=== PATIENT | male | born 1985 | race Caucasian/White ===

== ENCOUNTER 2019-04-28 11:26 | Emergency (ER) | payer SELFPAY ==
[2019-04-28 14:18] LABS: Absolute Lymphocytes (CBC) 1.6 K/uL (0.7-4.9); Basophils % 0.2 % (0-1.3); Hematocrit 47.5 % (39.6-49.0); Lymphocytes % 10.9 % (15.3-44.8); MPV 9.3 fL (7.6-11.3); RBC Red Blood Cell Count 5.48 M/uL (4.33-5.43)
[2019-04-28 14:30] LABS: Albumin 5.2 g/dL (3.4-5.0); Bilirubin Direct 0.2 mg/dL (0-0.2); Bilirubin Total 0.9 mg/dL (0.2-1.0); Potassium 3.4 mmol/L (3.5-5.1); Protein, Total 9.5 g/dL (6.4-8.2)
[2019-04-28] MEDS ORDERED: ONDANSETRON 4 MG/2 ML VIAL ONE (14:37)
[2019-04-28] MEDS ORDERED: NA CHLORIDE 0.9% 1,000 ML ONE (14:37)
[2019-04-28] MEDS ORDERED: FAMOTIDINE 20 MG/2 ML VIAL IV ONE (14:37)
--- NOTE | 2019-04-28 15:33 | RAD REPORT ---
EXAM DESCRIPTION: CT - Abdomen Pelvis W Contrast - 04/28/2019 3:06 pm CLINICAL HISTORY: NAUSEA / VOMITING COMPARISON: No comparisons TECHNIQUE: Biphasic, helical CT imaging of the abdomen and pelvis was performed following 100 ml non -ionic IV contrast. No oral contrast. All CT scans are performed using dose optimization technique as appropriate and may include automated exposure control or mA/KV adjustment according to patient size. FINDINGS: No suspicious findings in the lung bases. The liver, spleen, and pancreas show no suspicious findings. Liver attenuation is borderline to mildl y fatty infiltrated. No gallbladder or biliary tree abnormality. Symmetric renal function is seen with no hydronephrosis or suspicious renal mass. No pyelonephritis o r acute parenchymal process. No bladder abnormalities. No adrenal abnormalities. No prostate gland or seminal vesicle abnormality. No dilated bowel loops or bowel wall thickening. Appendix is normal. No free air, free fluid or infla mmatory stranding. No mass or bulky lymphadenopathy. Fat extends 1-2 cm into the right inguinal isra l. No suspicious bony findings. IMPRESSION: No appendicitis or other acute GI process identifiable. No acute finding. Borderline to mild fatty infiltration of the liver.
--- NOTE | 2019-04-28 15:39 | EDPHYS ---
Physician Documentation [facility] Name: Nile Saba Age: 33 yrs Sex: Male : 1985 Arrival Date: 04/28/2019 Time: 11:29 Bed 27 Private MD: ED Physician Mario Luna HPI: 04/28 14:55 This 33 yrs old Male presents to ER via Ambulatory with complaints of jr8 Vomiting. 14:55 The patient presents to the emergency department with nausea, vomiting. Onset: The jr8 symptoms/episode began/occurred acutely, yesterday. Possible causes: unknown. The symptoms are aggravated by food , The symptoms are alleviated by nothing. Associated signs and symptoms: The patient has no apparent associated signs or symptoms. Severity of symptoms: At their worst the symptoms were mild in the emergency department the symptoms are unchanged. The patient has experienced a previous episode. The patient has not recently seen a physician. Patient stated that he had bad hangover with n/v not too long ago. Stated that yesterday evening through today started to have nausea again without abdominal pain or diarrhea. Denies drinking . Historical: - Allergies: 12:20 No Known Allergies; ca1 - Home Meds: 12:20 None [Active]; ca1 - PMHx: 12:20 None; ca1 - PSHx: 12:20 None; ca1 - Immunization history:: Adult Immunizations up to date, Flu vaccine is not up to date. - Coronavirus screen:: The patient has NOT traveled to [place], [place], or [place] in the past 14 days. The patient has NOT had contact with known/suspected case of Coronavirus?. - Social history:: Smoking status: Patient denies any tobacco usage or history of. - Ebola Screening: : Patient negative for fever greater than or equal to 101.5 degrees Fahrenheit, and additional compatible Ebola Virus Disease symptoms Patient denies exposure to infectious person Patient denies travel to an Ebola-affected area in the 21 days before illness onset No symptoms or risks identified at this time. ROS: 14:55 Eyes: Negative for injury, pain, redness, and discharge, ENT: Negative for injury, jr8 pain, and discharge, Neck: Negative for injury, pain, and swelling, Cardiovascular: Negative for chest pain, palpitations, and edema, Respiratory: Negative for shortness of breath, cough, wheezing, and pleuritic chest pain, Back: Negative for injury and pain, MS/Extremity: Negative for injury and deformity, Skin: Negative for injury, rash, and discoloration, Neuro: Negative for headache, weakness, numbness, tingling, and seizure. 14:55 Abdomen/GI: Positive for nausea and vomiting, Negative for abdominal pain, diarrhea, constipation, abdominal cramps, abdominal distension, anorexia, dysphagia, hematemesis, black/tarry stool, rectal pain, rectal bleeding, bowel incontinence, flatulence. Exam: 14:55 Eyes: Pupils equal round and reactive to light, extra-ocular motions intact. Lids and jr8 lashes normal. Conjunctiva and sclera are non-icteric and not injected. Cornea within normal limits. Periorbital areas with no swelling, redness, or edema. ENT: Nares patent. No nasal discharge, no septal abnormalities noted. Tympanic membranes are normal and external auditory canals are clear. Oropharynx with no redness, swelling, or masses, exudates, or evidence of obstruction, uvula midline. Mucous membranes moist. Neck: Trachea midline, no thyromegaly or masses palpated, and no cervical lymphadenopathy. Supple, full range of motion without nuchal rigidity, or vertebral point tenderness. No Meningismus. Cardiovascular: Regular rate and rhythm with a normal S1 and S2. No gallops, murmurs, or rubs. Normal PMI, no JVD. No pulse deficits. Respiratory: Lungs have equal breath sounds bilaterally, clear to auscultation and percussion. No rales, rhonchi or wheezes noted. No increased work of breathing, no retractions or nasal flaring. Abdomen/GI: Soft, non-tender, with normal bowel sounds. No distension or tympany. No guarding or rebound. No evidence of tenderness throughout. Back: No spinal tenderness. No costovertebral tenderness. Full range of motion. Skin: Warm, dry with normal turgor. Normal color with no rashes, no lesions, and no evidence of cellulitis. MS/ Extremity: Pulses equal, no cyanosis. Neurovascular intact. Full, normal range of motion. Neuro: Awake and alert, GCS 15, oriented to person, place, time, and situation. Cranial nerves II-XII grossly intact. Motor strength 5/5 in all extremities. Sensory grossly intact. Cerebellar exam normal. Normal gait. Vital Signs: 12:20 BP 140 / 90; Pulse 105; Resp 16 S; Temp 98.9; Pulse Ox 97% on R/A; Weight 97.52 kg (R); ca1 Height 6 ft. 2 in. (187.96 cm) (R); Pain 0/10; 14:00 BP 132 / 78; Pulse 88; Resp 14; Temp 98.4; Pulse Ox 100% ; Pain 0/10; ls4 16:00 BP 133 / 76; Pulse 84; Resp 14; Pulse Ox 100% on R/A; Pain 0/10; ls4 12:20 Body Mass Index 27.60 (97.52 kg, 187.96 cm) ca1 MDM: 13:59 Patient medically screened. jr8 15:38 Data reviewed: vital signs, nurses notes, lab test result(s), radiologic studies, CT jr8 scan. Data interpreted: Pulse oximetry: on room air is 97 %. Interpretation: normal. Counseling: I had a detailed discussion with the patient and/or guardian regarding: the historical points, exam findings, and any diagnostic results supporting the discharge/admit diagnosis, lab results, radiology results, the need for outpatient follow up, a brand inspector, to return to the emergency department if symptoms worsen or persist or if there are any questions or concerns that arise at home. Response to treatment: the patient's symptoms have markedly improved after treatment. 04/28 13:46 Order name: Basic Metabolic Panel; Complete Time: 14:54 4 04/28 13:46 Order name: CBC with Diff; Complete Time: 14:54 [facility] 04/28 13:46 Order name: Creatinine for Radiology; Complete Time: 14:54 4 04/28 13:46 Order name: Hepatic Function; Complete Time: 14:54 4 04/28 13:46 Order name: Lipase; Complete Time: 14:54 4 04/28 14:57 Order name: CT Abd/Pelvis - IV Contrast Only; Complete Time: 15:38 8 04/28 13:46 Order name: IV Saline Lock; Complete Time: 17:35 4 04/28 13:46 Order name: Labs collected and sent; Complete Time: 17:35 ls4 Administered Medications: 14:40 Drug: Zofran 4 mg Route: IVP; Site: left antecubital; ls4 15:00 Follow up: Response: No adverse reaction; Marked relief of symptoms ls4 14:40 Drug: Pepcid 20 mg Route: IVP; Site: left antecubital; ls4 17:34 Follow up: Response: No adverse reaction; Marked relief of symptoms ls4 14:41 Drug: NS 0.9% 1000 ml Route: IV; Rate: 1000 ml; Site: left antecubital; ls4 16:40 Follow up: IV Intake: 1000ml ls4 15:57 Drug: Promethazine 12.5 mg Route: IVP; Site: left antecubital; ls4 16:20 Follow up: Response: No adverse reaction; Marked relief of symptoms ls4 15:58 Drug: GI Cocktail without - (Maalox Suspension 30 ml, Lidocaine Liquid 2 % 15 ls4 ml) Route: PO; 16:15 Follow up: Response: No adverse reaction; Marked relief of symptoms ls4 Disposition: 18:38 Co-signature as Attending Physician, Mario Luna MD I agree with the assessment and kdr plan of care. Disposition: 04/28/19 15:38 Discharged to Home. Impression: Gastritis, unspecified. - Condition is Stable. - Discharge Instructions: Gastritis, Adult. - Prescriptions for omeprazole 40 mg Oral capsule,delayed release(DR/EC) - take 1 capsule by ORAL route once daily before a meal; 30 capsule. Zofran 4 mg Oral Tablet - take 1 tablet by ORAL route every 12 hours As needed; 20 tablet. - Medication Reconciliation Form, Thank You Letter, Antibiotic Education, Prescription Opioid Use form. - Follow up: Bipin Carolina MD; When: 5 - 6 days; Reason: Recheck today's complaints, Continuance of care, Re-evaluation by your physician. - Problem is new. - Symptoms have improved. Signatures: Dispatcher [employer] EDDE Mario Luna MD MD kdr Gilberto Lopez PA PA jr8 Sera Solis RN RN ls4 Barbie Enrique RN RN ca1 Corrections: (The following items were deleted from the chart) 18:01 15:38 04/28/2019 15:38 Discharged to Home. Impression: Gastritis, unspecified. ls4 Condition is Stable. Forms are Medication Reconciliation Form, Thank You Letter, Antibiotic Education, Prescription Opioid Use. Follow up: Bipni Carolina; When: 5 - 6 days; Reason: Recheck today's complaints, Continuance of care, Re-evaluation by your physician. Problem is new. Symptoms have improved. jr8
--- NOTE | 2019-04-28 15:39 | ER ---
Nurse's Notes [facility] Name: Nile Saba Age: 33 yrs Sex: Male : 1985 Arrival Date: 04/28/2019 Time: 11:29 Bed 27 Private MD: Diagnosis: Gastritis, unspecified Presentation: 04/28 12:15 Presenting complaint: Patient states: "I have been vomiting since last night. MY vomit ca1 looks like bowel. I feel weak, have on and off abdominal pain. This is the second time I felt this, last time was in March" Denies fever, diarrhea. Reports nausea. Transition of care: patient was not received from another setting of care. Onset of symptoms was April 27, 2019. Risk Assessment: Do you want to hurt yourself or someone else? Patient reports no desire to harm self or others. Initial Sepsis Screen: Does the patient meet any 2 criteria? No. Patient's initial sepsis screen is negative. Does the patient have a suspected source of infection? No. Patient's initial sepsis screen is negative. Care prior to arrival: None. 12:15 Method Of Arrival: Ambulatory ca1 12:15 Acuity: TOM 3 ca1 Triage Assessment: 13:45 General: Appears in no apparent distress. uncomfortable, Behavior is calm, cooperative. ls4 13:45 Pain: Denies pain. GI: Reports nausea, vomiting, since YESTERDAY. ls4 Historical: - Allergies: 12:20 No Known Allergies; ca1 - Home Meds: 12:20 None [Active]; ca1 - PMHx: 12:20 None; ca1 - PSHx: 12:20 None; ca1 - Immunization history:: Adult Immunizations up to date, Flu vaccine is not up to date. - Coronavirus screen:: The patient has NOT traveled to [place], [place], or [place] in the past 14 days. The patient has NOT had contact with known/suspected case of Coronavirus?. - Social history:: Smoking status: Patient denies any tobacco usage or history of. - Ebola Screening: : Patient negative for fever greater than or equal to 101.5 degrees Fahrenheit, and additional compatible Ebola Virus Disease symptoms Patient denies exposure to infectious person Patient denies travel to an Ebola-affected area in the 21 days before illness onset No symptoms or risks identified at this time. Screenin:45 Abuse screen: Denies threats or abuse. Denies injuries from another. Nutritional ls4 screening: No deficits noted. Tuberculosis screening: No symptoms or risk factors identified. Fall Risk None identified. Assessment: 14:02 General: SEE TRIAGE ASSESSMENT . Respiratory: Airway is patent Respiratory effort is ls4 even, unlabored, Respiratory pattern is regular. GI: Abdomen is round non-distended, obese, Pt is actively vomiting NO Bowel sounds present X 4 quads. Abd is soft and non tender X 4 quads. Reports vomiting. Derm: Skin is pink, warm \\T\\ dry. Vital Signs: 12:20 BP 140 / 90; Pulse 105; Resp 16 S; Temp 98.9; Pulse Ox 97% on R/A; Weight 97.52 kg (R); ca1 Height 6 ft. 2 in. (187.96 cm) (R); Pain 0/10; 14:00 BP 132 / 78; Pulse 88; Resp 14; Temp 98.4; Pulse Ox 100% ; Pain 0/10; ls4 16:00 BP 133 / 76; Pulse 84; Resp 14; Pulse Ox 100% on R/A; Pain 0/10; ls4 12:20 Body Mass Index 27.60 (97.52 kg, 187.96 cm) ca1 ED Course: 11:29 Patient arrived in ED. mr 12:19 Triage completed. ca1 12:20 Arm band placed on right wrist. ca1 13:45 Sera Solis, RN is Primary Nurse. ls4 13:45 Patient has correct armband on for positive identification. Placed in gown. Bed in low ls4 position. Call light in reach. Side rails up X2. Adult w/ patient. 13:45 No provider procedures requiring assistance completed. ls4 13:46 Gilberto Lopez PA is PHCP. jr8 13:46 Mario Luna MD is Attending Physician. jr8 13:55 Initial lab(s) drawn, by me, sent to lab. Inserted saline lock: 20 gauge in left tm3 antecubital area, using aseptic technique. 15:05 CT Abd/Pelvis - IV Contrast Only In Process Unspecified. EDMS 15:38 Bipin Carolina MD is Referral Physician. jr8 18:00 IV discontinued, intact, bleeding controlled, No redness/swelling at site. Pressure ls4 dressing applied. Administered Medications: 14:40 Drug: Zofran 4 mg Route: IVP; Site: left antecubital; ls4 15:00 Follow up: Response: No adverse reaction; Marked relief of symptoms ls4 14:40 Drug: Pepcid 20 mg Route: IVP; Site: left antecubital; ls4 17:34 Follow up: Response: No adverse reaction; Marked relief of symptoms ls4 14:41 Drug: NS 0.9% 1000 ml Route: IV; Rate: 1000 ml; Site: left antecubital; ls4 16:40 Follow up: IV Intake: 1000ml ls4 15:57 Drug: Promethazine 12.5 mg Route: IVP; Site: left antecubital; ls4 16:20 Follow up: Response: No adverse reaction; Marked relief of symptoms ls4 15:58 Drug: GI Cocktail without - (Maalox Suspension 30 ml, Lidocaine Liquid 2 % 15 ls4 ml) Route: PO; 16:15 Follow up: Response: No adverse reaction; Marked relief of symptoms ls4 Intake: 16:40 IV: 1000ml; Total: 1000ml. ls4 Outcome: 15:38 Discharge ordered by . anthony 18:00 Discharged to home ambulatory, with family. ls4 18:00 Condition: stable 18:00 Discharge instructions given to patient, family, Instructed on discharge instructions, follow up and referral plans. Demonstrated understanding of instructions. 18:01 Patient left the ED. ls4 Signatures: Dispatcher [employer] EDMS Isis Jarrell [email or web address] Weir Yaneli mr Gilberto Lopez PA PA jr8 Sera Slois RN RN ls4 Barbie Enrique RN RN ca1 Corrections: (The following items were deleted from the chart) 17:35 17:34 IV Intake: 1000ml ls4 ls4
[2019-04-28] MEDS ORDERED: NA CHLORIDE 0.9% 100 ML IV ONE (15:55)
[2019-04-28] MEDS ORDERED: PROMETHAZINE INJ 25 MG/ML AMP ONE (15:55)
[2019-04-28] MEDS ORDERED: MAGNE/ALUM HYDROXD 30 ML UCUP ONE (15:55)
[2019-04-28] MEDS ORDERED: LIDOCAINE VISCOUS 2% SOLN 15 ML UDC ONE (15:55)
[2019-04-28 18:06] VITALS: BP 140/90; TEMP 98.9; O2SAT 97
== END 2019-04-28 18:01 | disposition home or self-care (01) ==
LOC: ER 11:26
DX: K29.70 Gastritis, unspecified, without bleeding (principal)
CPT/HCPCS: 36415; 74177; 80048; 80076; 83690; 85025; 96374; 96375; 99284; J2405; J2550; J7030; Q9967